=== PATIENT | male | born 1990 | race African-American/Black ===

== ENCOUNTER 2018-06-03 11:47 | Emergency (ER) | payer SELFPAY ==
[2018-06-03 11:55] VITALS: BP 100/64; PULSE 86; TEMP 98.3; BMI 17.6
--- NOTE | 2018-06-03 13:10 | PDOC ---
History of Present Illness - General Chief Complaint: HIV Testing Stated Complaint: STD TEST Time Seen by Provider: 06/03/18 13:02 History Source: Patient Exam Limitations: No Limitations - History of Present Illness Initial Comments: CHIEF COMPLAINT: 28 y/o male here for STD testing. HISTORY OF PRESENT ILLNESS: Patient states he's had 3 sexual partners over the past 1 year, all of whom he's had unprotected intercourse with. He would like to be tested for HIV. He denies all symptoms. Vital signs on arrival are within normal limits. REVIEW OF SYSTEMS: GENERAL/CONSTITUTIONAL: Subjective fever/chills. No weakness. No weight change. HEAD, EYES, EARS, NOSE AND THROAT: No change in vision. No ear pain or discharge. No sore throat. CARDIOVASCULAR: No chest pain or shortness of breath. RESPIRATORY: No cough, wheezing, or hemoptysis. GASTROINTESTINAL: See history of present illness. GENITOURINARY: No dysuria, frequency, or change in urination. MUSCULOSKELETAL: No joint or muscle swelling or pain. No neck or back pain. SKIN: No rash or easy bruising. NEUROLOGIC: No headache, vertigo, loss of consciousness, or loss of sensation. PHYSICAL EXAM: GENERAL: The patient is awake, alert, and fully oriented, in no acute distress. HEAD: Normal with no signs of trauma. NEUROLOGICAL: Normal speech, normal gait. CN II-XII grossly intact. PSYCH: Normal mood, normal affect. SKIN: Warm, dry, normal turgor, no rashes or lesions noted. Past History - Past Medical History Allergies/Adverse Reactions: Allergies Allergy/AdvReac Type Severity Reaction Status Date / Time No Known Allergies Allergy Verified 06/03/18 13:02 Home Medications: Ambulatory Orders NK [No Known Home Medication] 06/03/18 COPD: No - Suicide/Smoking/Psychosocial Hx Smoking History: Never smoked *Physical Exam - Vital Signs Last Vital Signs Temp Pulse Resp BP Pulse Ox 98.3 F 86 18 100/64 99 06/03/18 11:54 06/03/18 11:54 06/03/18 11:54 06/03/18 11:54 06/03/18 11:54 Moderate Sedation - Procedure Monitoring Vital Signs: Procedure Monitoring Vital Signs Temperature 98.3 F 06/03/18 11:54 Pulse Rate 86 06/03/18 11:54 Respiratory Rate 18 06/03/18 11:54 Blood Pressure 100/64 06/03/18 11:54 O2 Sat by Pulse Oximetry (%) 99 06/03/18 11:54 Medical Decision Making - Medical Decision Making A/P: 28 y/o male here for STD testing. Will order HIV, RPR and GC/chlamydia. HIV - negative RPR - negative Gave the patient his results. Informed the patient of his results. Informed him GC/Chlamydia will be resulted in a few days and he will get a call with the results. The patient verbalizes understanding of all instructions, has no further questions and is awaiting discharge. *DC/Admit/Observation/Transfer Diagnosis at time of Disposition: Screening for STD (sexually transmitted disease) - Discharge Dispostion Disposition: HOME Condition at time of disposition: Good - Referrals - Patient Instructions Printed Discharge Instructions: Facts About Sexually Transmitted Infections Additional Instructions: Discharge Instructions: -Your HIV test was negative -The results of your gonorrhea and chlamydia test will be resulted in 3-4 days and you will receive a call if it is positive; you will not receive a call if the results are negative - Post Discharge Activity
== END 2018-06-03 14:57 | disposition home or self-care (01) ==
LOC: JERFT 11:47
DX: Z11.3 Encounter for screening for infections with a predominantly sexual mode of transmission (principal); Z11.4 Encounter for screening for human immunodeficiency virus [HIV]
CPT/HCPCS: 36415; 86593; 87389; 87491; 87591; 99281-25